=== PATIENT | female | born 1985 | race Caucasian/White ===

== ENCOUNTER 2021-01-18 09:25 | Inpatient (IN) | payer OTHER ==
[2021-01-18] MEDS: ELECTROLYTE-148 SOLN 1,000 ML IV SCH ×2 (11:30→20:01)
[2021-01-18 12:36] VITALS: BMI 27.6
[2021-01-18 12:39] LABS: BASO % 0.2 % (0-2.0); EOS % 0.5 % (0-4.5); HEMATOCRIT 33.3 % (32.4-45.2); HEMOGLOBIN 11.7 GM/dL (10.7-15.3); LYMPH % 34.8 % (8-40); MEAN CELL VOLUME 91.4 fl (80-96); MEAN PLT VOLUME 7.9 fl (7.5-11.1); MONO % 5.3 % (3.8-10.2); NEUT % 59.2 % (42.8-82.8); PLATELET COUNT 249 10^3/uL (134-434); RBC 3.64 M/mm3 (3.60-5.2); RDW 13.8 % (11.6-15.6); WHITE BLOOD COUNT 5.5 K/mm3 (4.0-10.0)
[2021-01-18 12:47] LABS: INR 0.93 (0.83-1.09); PROTHROMBIN TIME (PATIENT) 10.9 SEC (9.7-13.0)
[2021-01-18 12:49] LABS: ACTIVATED PTT 28.5 SECONDS (25.2-36.5)
[2021-01-18 13:14] LABS: CALCIUM 8.5 mg/dL (8.5-10.1); CREATININE 0.6 mg/dL (0.55-1.3)
[2021-01-18] MEDS ORDERED: OXYTOCIN 30 UNITS in 0.9% NS 30 UNIT/500 ML INFUS.BAG IVPB ONE (13:26)
[2021-01-18] MEDS ORDERED: OXYTOCIN 30 UNITS in 0.9% NS 30 UNIT/500 ML INFUS.BAG IVPB SCH (15:00)
[2021-01-18] MEDS ORDERED: OXYTOCIN 20 UNITS in 0.9% NS 20 UNIT/1,000 ML INFUS.BAG IV ONE (19:17)
[2021-01-18] MEDS ORDERED: BUTORPHANOL TARTRATE 2 MG/ML VIAL ONE (19:27)
[2021-01-18] MEDS ORDERED: PROMETHAZINE HCL 25 MG/1 ML VIAL ONE (19:27)
[2021-01-18] MEDS ORDERED: BUTORPHANOL TARTRATE 1 MG/ML VIAL IVPUSH ONE (19:29)
[2021-01-18] MEDS ORDERED: PROMETHAZINE HCL 25 MG/1 ML VIAL IVPUSH ONE (19:30)
[2021-01-18] MEDS ORDERED: oxyCODONE HCL 5 MG TABLET PO PRN (21:15)
[2021-01-18] MEDS ORDERED: OXYTOCIN 20 UNITS in 0.9% NS 20 UNIT/1,000 ML INFUS.BAG IV SCH (21:15)
[2021-01-18] MEDS ORDERED: BISACODYL 10 MG SUPP.RECT RC PRN (21:15)
[2021-01-18] MEDS ORDERED: WITCH HAZEL 50% (TUCKS) 40 PAD/JAR PAD TP PRN (21:15)
[2021-01-18] MEDS ORDERED: BENZOCAINE 28 GM HEMORRHOIDAL OINTMENT TP PRN (21:15)
[2021-01-18] MEDS ORDERED: ACETAMINOPHEN 325 MG TABLET (FP) PO PRN (21:15)
[2021-01-18] MEDS ORDERED: METHYLERGONOVINE MALEATE 0.2 MG/1 ML AMP IM PRN (21:15)
[2021-01-18] MEDS ORDERED: BENZOCAINE 20% 57 GM BOTTLE TP PRN (21:15)
[2021-01-18 21:57] LABS: CORD BASE EXCESS -2.8 mmol/L (0-2); CORD BASE EXCESS -3.9 mmol/L (0-2); CORD HCO3 25.6 mmHg (20-29); CORD PCO2 43.2 mmHg (30-78); CORD PCO2 61.1 mmHg (30-78); CORD pH 7.24 (7.14-7.44); CORD pH 7.325 (7.14-7.44)
[2021-01-19] MEDS: IBUPROFEN 600 MG TABLET (FP) PO PRN ×3 (04:45→20:37)
[2021-01-19 08:24] LABS: BASO % 0.1 % (0-2.0); EOS % 0.2 % (0-4.5); HEMATOCRIT 34.1 % (32.4-45.2); HEMOGLOBIN 11.8 GM/dL (10.7-15.3); LYMPH % 21.9 % (8-40); MCH 31.7 pg (25.7-33.7); MCHC 34.7 g/dl (32.0-36.0); MEAN CELL VOLUME 91.3 fl (80-96); MEAN PLT VOLUME 8.3 fl (7.5-11.1); MONO % 5.6 % (3.8-10.2); NEUT % 72.2 % (42.8-82.8); PLATELET COUNT 249 10^3/uL (134-434); RBC 3.73 M/mm3 (3.60-5.2); RDW 13.9 % (11.6-15.6); WHITE BLOOD COUNT 11.6 K/mm3 (4.0-10.0)
[2021-01-19 17:56] VITALS: TEMP 98.3
[2021-01-19] MEDS ORDERED: SENNOSIDES/DOCUSATE COMBO (SENNA PLUS) TABLET (UD) PO PRN (22:00)
[2021-01-19 22:19] VITALS: BP 111/67; PULSE 79
[2021-01-20] MEDS: IBUPROFEN 600 MG TABLET (FP) PO PRN (07:49)
== END 2021-01-20 10:07 | disposition home or self-care (01) | DRG 560 ==
LOC: JDEL 09:25 → JLDR 10:50 → J3W 22:22
PROVIDERS: ADMIT Family Medicine; ATTEND Family Medicine
PROC: 10E0XZZ Delivery of Products of Conception, External Approach (ICD-10-PCS; principal; 2021-01-18)
DX: O80 Encounter for full-term uncomplicated delivery (principal); Z3A.39 39 weeks gestation of pregnancy; Z37.0 Single live birth
CPT/HCPCS: 36415; 36600; 59409; 80048; 82803; 85025; 85610; 85730; 86780; 86850; 86870; 86900; 86901; 86902; C9803; U0003; U0005

== ENCOUNTER 2023-12-01 23:03 | Emergency (ER) | payer OTHER ==
[2023-12-01 23:14] VITALS: BMI 23.8
[2023-12-01] MEDS ORDERED: ONDANSETRON *ODT* 4 MG TABLET SL ONE (23:34)
[2023-12-01] MEDS ORDERED: ACETAMINOPHEN INJECTION 100 ML ONE (23:54)
[2023-12-01] MEDS ORDERED: KETOROLAC TROMETHAMINE 15 MG/ML VIAL ONE (23:55)
[2023-12-01] MEDS ORDERED: ONDANSETRON 4 MG/2 ML VIAL ONE (23:55)
[2023-12-01 23:59] LABS: BASO % 0.1 % (0-2.0); HEMATOCRIT 34.4 % (32.4-45.2); HEMOGLOBIN 11.9 GM/dL (10.7-15.3); LYMPH % 11.1 % (8-40); MCH 30.1 pg (25.7-33.7); MCHC 34.5 g/dl (32.0-36.0); MEAN CELL VOLUME 87.1 fl (80-96); MEAN PLT VOLUME 7.5 fl (7.5-11.1); MONO % 9.4 % (3.8-10.2); NEUT % 79.4 % (42.8-82.8); PLATELET COUNT 248 10^3/uL (134-434); RBC 3.95 M/mm3 (3.60-5.2); RDW 13.1 % (11.6-15.6); WHITE BLOOD COUNT 10.5 K/mm3 (4.0-10.0)
[2023-12-02 00:01] LABS: EPI CELLS 3 /uL (0-25.1); HYALINE CASTS 24 /uL (0-3.1); PH,URINE 6.5 (5.0-8.0); URINE APPEARANCE TURBID; URINE BACTERIA 6223 /uL (0-1359); URINE BILIRUBIN 1+ (NEGATIVE); URINE COLOR DK YELLOW; URINE GLUCOSE (UA) NEGATIVE (NEGATIVE); URINE KETONE 1+ (NEGATIVE); URINE LEUK ESTERASE 3+ (NEGATIVE); URINE NITRITE POSITIVE (NEGATIVE); URINE PROTEIN 3+ (NEGATIVE); URINE RBC 4652 /uL (0-23.9); URINE WBC 25331 /uL (0-25.8)
[2023-12-02] MEDS: LACTATED RINGERS SOLUTION 1000 ML INFUS.BAG IV ONE (00:07)
[2023-12-02] MEDS: KETOROLAC TROMETHAMINE 15 MG/ML VIAL IVPUSH ONE (00:07)
[2023-12-02] MEDS: ACETAMINOPHEN 1000 MG/100 ML BAG IVPB ONE (00:07)
[2023-12-02] MEDS: ONDANSETRON 4 MG/2 ML VIAL IVPUSH ONE (00:07)
[2023-12-02] MEDS ORDERED: CEFTRIAXONE 1,000 MG in DEXTROSE 5%-WATER - 50 ML IVPB ONE (00:19)
[2023-12-02] MEDS ORDERED: CEFTRIAXONE 1 GM/50 ML BAG ONE (00:30)
[2023-12-02 00:32] LABS: POTASSIUM 3.4 mmol/L (3.5-5.1)
[2023-12-02 00:33] LABS: CALCIUM 8.9 mg/dL (8.5-10.1)
[2023-12-02 00:34] LABS: ALBUMIN 3.9 g/dl (3.4-5.0); BLOOD UREA NITROGEN 10.8 mg/dL (7-18); MAGNESIUM 1.9 mg/dL (1.8-2.4)
[2023-12-02 00:37] LABS: CREATININE 0.8 mg/dL (0.55-1.3)
[2023-12-02 00:39] LABS: BILIRUBIN,TOTAL 2.8 mg/dL (0.2-1); TOT PROT 7.9 g/dl (6.4-8.2)
[2023-12-02 00:50] VITALS: BP 95/55; PULSE 98; RESP 16; TEMP 99.3
== END 2023-12-02 00:59 | disposition home or self-care (01) ==
LOC: JER 23:03
PROC: 3E033NZ Introduction of Analgesics, Hypnotics, Sedatives into Peripheral Vein, Percutaneous Approach (ICD-10-PCS; principal; 2023-12-01)
PROC: 3E0333Z Introduction of Anti-inflammatory into Peripheral Vein, Percutaneous Approach (ICD-10-PCS; 2023-12-01)
PROC: 3E033GC Introduction of Other Therapeutic Substance into Peripheral Vein, Percutaneous Approach (ICD-10-PCS; 2023-12-01)
DX: N12 Tubulo-interstitial nephritis, not specified as acute or chronic (principal); R35.0 Frequency of micturition; R11.2 Nausea with vomiting, unspecified; R00.0 Tachycardia, unspecified; R50.9 Fever, unspecified; Z20.822 Contact with and (suspected) exposure to COVID-19
CPT/HCPCS: 0241U-QW; 36415; 80053; 81003; 83735; 85025; 86850; 86870; 86880; 86900; 86901; 86902; 87086; 87186; 96374; 96375; 99284-25; J0131